=== PATIENT | female | born 1995 | race Two or more races ===

== ENCOUNTER 2017-11-13 09:48 | Outpatient (CLI) | payer OTHER | END 2017-11-13 23:59 | disposition home or self-care (01) | LOC: MSC 09:48 | PROVIDERS: ATTEND Anesthesiology | DX: S13.4XXD Sprain of ligaments of cervical spine, subsequent encounter (principal); M54.2 Cervicalgia; M54.12 Radiculopathy, cervical region; M25.512 Pain in left shoulder; M62.838 Other muscle spasm; M60.9 Myositis, unspecified; M75.80 Other shoulder lesions, unspecified shoulder; V49.9XXD Car occupant (driver) (passenger) injured in unspecified traffic accident, subsequent encounter ==